=== PATIENT | female | born 1955 | race Caucasian/White ===

== ENCOUNTER → 2016-12-22 | Outpatient (CLI) | payer BC | LOC: FIMAGING 08:15 | PROVIDERS: ATTEND Internal Medicine Cardiovascular Disease | DX: Z03.89 Encounter for observation for other suspected diseases and conditions ruled out (principal) ==

== ENCOUNTER 2017-08-03 13:18 | Day surgery (SDC) | payer BC ==
[2017-08-03] MEDS ORDERED: LR 1,000 ML IV ONE (13:49)
[2017-08-03] MEDS ORDERED: LIDOCAINE 1% 2 ML INJ ID PRN (13:49)
[2017-08-03 14:38] VITALS: PULSE 74
[2017-08-03] MEDS ORDERED: ceFAZolin 2 GM/SWFI 2 GM/20 ML SYR IVP ONE (15:08)
--- NOTE | 2017-08-03 15:24 | PDHPUP ---
History & Physical Update H&P update statement: This history and physical update is based on an assessment of the patient which was completed after admission or registration (within 24 hours), but prior to the surgery/procedure. 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 Bonita relates feeling well, no changes since exam last week. My office is forwarding copy of preop visit with me. Today to update: Lungs Clear Heart NRR. There appears to be no contraindication to surgery. H&P changes: None.
[2017-08-03] MEDS ORDERED: BACITRACIN 50,000 UNITS/10 ML SYR IRR ONE ×2 (15:38→17:34)
[2017-08-03] MEDS ORDERED: LIDOCAINE 2% 5 ML SDV ONE (15:38)
[2017-08-03] MEDS ORDERED: ROPIVACAINE HCL 150 MG/30 ML INJ ONE (15:39)
[2017-08-03] MEDS ORDERED: DEXAMETHASONE 4 MG/ML VIAL ONE (15:40)
[2017-08-03] MEDS ORDERED: BUPIVACAINE 0.5% 30 ML SDV ONE ×2 (15:40→18:34)
[2017-08-03] MEDS ORDERED: MIDAZOLAM 2 MG/2 ML VIAL IVP ONE (15:53)
--- NOTE | 2017-08-03 15:55 | PDANEPAE ---
ANE Past Medical History - Cardiovascular History Hx Hypertension: Yes Hx Arrhythmias: No Hx Chest Pain: No Hx Coronary Artery / Peripheral Vascular Disease: Yes Hx CHF / Valvular Disease: No Hx Palpitations: No Cardiovascular History Comment: htn. cad. hyperlipidemia - Pulmonary History Hx COPD: No Hx Asthma/Reactive Airway Disease: No Hx Recent Upper Respiratory Infection: No Hx Oxygen in Use at Home: No Hx Sleep Apnea: No Sleep Apnea Screening Result - Last Documented: Negative - Neurologic History Hx Cerebrovascular Accident: No Hx Seizures: No Hx Dementia: No - Endocrine History Hx Diabetes: No Hypothyroid: Yes Hyperthyroid: No Obesity: no Endocrine History Comment: hypothyroidism - Renal History Hx Renal Disorders: No - Liver History Hx Hepatic Disorders: No - Neurological & Psychiatric Hx Hx Neurological and Psychiatric Disorders: No - Cancer History Hx Cancer: No - Congenital Disorder History Hx Congenital Disorders: No - GI History Hx Gastrointestinal Disorders: No - Other Health History Other Health History: wears glasses/ contacts. current toe fungus being treated by jonathan - Chronic Pain History Chronic Pain: Yes (bilateral feet and knees, right shoulder pain) - Surgical History Prior Surgeries: previous right foot surgery. . exploratory lap for fallopian tube adhesions ANE Review of Systems Review of Systems: - Exercise capacity METS (RN): 4 METS ANE Patient History - Allergies Allergies/Adverse Reactions: No Known Allergies Allergy (Verified 08/03/17 14:06) - Home Medications Home Medications: Aspirin 81mg (*) 07/26/17 [Last Taken 07/24/17] Atorvastatin Calcium 07/26/17 [Last Taken 08/03/17 08:00] Herbals/Supplements -Info Only 07/26/17 [Last Taken 07/24/17] IBUPROFEN 07/26/17 [Last Taken 07/24/17] LAMISIL 07/26/17 [Last Taken 07/27/17] LEVOTHYROXINE SODIUM 07/26/17 [Last Taken 08/03/17 08:00] Lisinopril 07/26/17 [Last Taken 08/03/17 08:00] - NPO status NPO Since - Liquids (Date): 08/03/17 NPO Since - Liquids (Time): 11:00 NPO Since - Solids (Date): 08/03/17 NPO Since - Solids (Time): 05:30 - Smoking Hx Smoking Status: Former smoker - Family Anes Hx Family Hx Anesthesia Complications: none ANE Labs/Vital Signs - Vital Signs Blood Pressure: 123/79 Heart Rate: 74 Respiratory Rate: 16 O2 Sat (%): 97 Height: 165.1 cm Weight: 80.739 kg ANE Physical Exam - Airway Neck exam: FROM Mallampati Score: Class 2 Mouth exam: normal dental/mouth exam - Pulmonary Pulmonary: no respiratory distress, no rales or rhonchi - Cardiovascular Cardiovascular: regular rate and rhythym, no murmur, rub, or gallop - ASA Status ASA Status: II ANE Anesthesia Plan Anesthesia Plan: GA w LMA, MAC
[2017-08-03] MEDS ORDERED: fentaNYL 100 MCG/2 ML INJ ONE (15:59)
[2017-08-03] MEDS ORDERED: PROPOFOL/EMULSION 500 MG/50 ML BOTTLE IV ONE ×2 (15:59→17:11)
[2017-08-03] MEDS ORDERED: MIDAZOLAM 2 MG/2 ML VIAL ONE (16:06)
[2017-08-03] MEDS ORDERED: LIDOCAINE 1% 300 MG/30 ML SDV ONE ×2 (16:25→18:34)
[2017-08-03] MEDS ORDERED: KETAMINE 200 MG/20 ML VIAL ONE (16:26)
[2017-08-03] MEDS ORDERED: PROPOFOL 200 MG/20 ML VIAL ONE (16:34)
[2017-08-03] MEDS ORDERED: VANCOMYCIN 1 GM VIAL ONE (17:33)
[2017-08-03] MEDS ORDERED: fentaNYL 100 MCG/2 ML INJ IVP PRN (18:05)
[2017-08-03] MEDS ORDERED: NALOXONE HCL 0.4 MG/ML INJ IVP PRN (18:05)
[2017-08-03] MEDS ORDERED: HYDROCODONE/APAP 5/325 TAB PO PRN (18:05)
[2017-08-03] MEDS ORDERED: ONDANSETRON 4 MG/2 ML VIAL IVP PRN (18:05)
[2017-08-03] MEDS ORDERED: LR 500 ML IV PRN (18:05)
[2017-08-03] MEDS ORDERED: POVIDONE-IODINE 30 GM OINTTUBE TP ONE (18:06)
--- NOTE | 2017-08-03 18:25 | POSTANESTH ---
Post Anesthetic Evaluation Cardiovascular Status: Normal, Stable Respiratory Status: Normal, Stable Level of Consciousness/Mental Status: Can Participate in Eval Pain Control: Adequate, Prn Tx Ordered Nausea/Vomiting Control: Adequate, Prn Tx Ordered Complications Possibly Related to Anesthesia: None Noted
--- NOTE | 2017-08-03 18:29 | POSTOPPROG ---
Post Op Note Date of Operation: 08/03/17 Surgeon: Susan Madrid Architectural Project Manager: none Anesthesiologist: yvonne Snider MD Anesthesia: Other (Specify) (MAC/light general) Pre-op Diagnosis: 1.complication biomedical engineering internship.fiximplant 1stMTPJ. 2. Mallet/HT 2nd Right foot Post-op Diagnosis: same Indication: Pain , loosening of implant Procedure: ARthroplasty,w removal of biopro implant. HT repair with screw fix.2ndtoeR Findings: loose implant Inf/Abcess present in the surg proc area at time of surgery?: No Depth: Deep Incisional (Fascial) EBL: Minimal Complications: Patient moved foot under drape at mid procedure ,however it was retrieved rather quickly and since prep was to knee and bottom drape intact, and with stockenette it is suspected that wound/foot remained sterile. Wounds were copiously irrigated with 1 gram vancomycin and bacitracin, and 2 litters of sterile saline. Specimen(s): none sent. implant was intact, no degeneration. no gross signs of infection.
[2017-08-03 19:12] VITALS: RESP 20; TEMP 97.3
[2017-08-03 19:36] VITALS: BP 136/96
[2017-08-03 20:10] VITALS: O2SAT 93
--- NOTE | 2017-08-04 05:26 | GOP ---
[f rep st] OPERATIVE REPORT DATE OF OPERATION: SURGEON: Susan Madrid DPM ANESTHESIA: MAC/light general. ANESTHESIOLOGIST: PREOPERATIVE DIAGNOSIS: 1. Complication internal fixation, BioPro implant, 1st metatarsophalangeal joint, right foot. 2. Mallet toe/hammertoe contracture, 2nd digit, right foot. POSTOPERATIVE DIAGNOSIS: 1. Complication internal fixation, BioPro implant, 1st metatarsophalangeal joint, right foot. 2. Mallet toe/hammertoe contracture, 2nd digit, right foot. PROCEDURE PERFORMED: 1. Arthroplasty with removal of BioPro implant, right foot. 2. Mallet toe repair involving fusion, distal interphalangeal joint with screw fixation and pin fixa tion, right foot. FINDINGS: 1. Degenerative changes, distal interphalangeal joint, 2nd digit, right foot. 2. BioPro implant loose and unstable within the joint. ESTIMATED BLOOD LOSS: Less than 5 cc. DESCRIPTION OF PROCEDURE: The patient brought into the operating room, placed on the operating table in the supine position. Intravenous sedation administered by the anesthesiologist, a light general. The lower extremity was prepped and draped in the usual sterile manner, after the limb was elevated , was exsanguinated with an Esmarch bandage, and the ankle tourniquet was inflated to 220 mmHg, and t he procedure was begun. Stockinette used utilized under the ankle cuff. Procedure #1: Arthroplasty with removal BioPro implant, 1st metatarsophalangeal joint. Attention wa s directed toward the dorsal aspect of the 1st metatarsophalangeal joint where a linear incision was created along previous incision line. Incision was carefully deepened with care of neurovascular str uctures and clamp and cauterize bleeders. Linear cut immediately below the tissue, which is subcutan eous tissue, which was noted to be very thin. Implant was noted. Implant was loose and toggling. S urrounding, there were adhesions around the joint, and soft tissue was carefully reflected off the im plant in the joint. It took considerable time to loosen the implant from the proximal phalanx. Util izing saw, some bone was removed dorsally to help assist in the process. Implant was then removed venegas ccessfully. The whole defect was then filled with Maria M bone graft. Wound was copiously irrigated bacitracin irrigation solution throughout the procedure. Attention directed toward the 2nd digit, where a linear incision was created. Incision carefully verna pened with care of neurovascular structures and clamp and cauterize bleeders. Transverse tenotomy pe rformed at the level of the distal interphalangeal joint. Tendon reflected, exposing distal interpha langeal joint. Utilizing sagittal saw, cartilage was resected off the head of the proximal phalanx a nd base of the middle phalanx in preparation for fusion. Wound was copiously irrigated with bacitrac in irrigation solution. Pin driven through the distal phalanx and retrograded through the middle phalanx. C-arm pictures carlos manuel ifying alignment and positioning, which appeared excellent. The positioning was at a slight angle, h owever, apposition and positioning of the toe was clinically in great alignment. Then, utilizing Ost eoMed 2.4, 16 mm screw placed from distal to proximal, distal interphalangeal joint was fixated with good apposition. C-arm pictures taken. K-wire was left in place, running through the head of the pr oximal phalanx, to add to some additional stability, but will be removed at a week or 2 postoperative ly. Again with loading of the forefoot, excellent alignment, despite radiographic picture showing sl ight angle. There was an incident where the patient moved her foot underneath the drape, however, I believe I cau ght her foot before she broke sterile technique, we had an under drape, as well as she had a stockine tte on. However, once retrieved, I did a 2 L irrigation with vancomycin and bacitracin to ensure the foot and the wound did not get contaminated. Capsular closure of the 1st metatarsophalangeal joint achieved with 2-0 and 3-0 Vicryl. Second digit closed with 3-0 Vicryl. Tourniquet released and a normal hyperemic response noted to all digits. S ubcutaneous closure with 4-0 Monocryl, and the skin was closed with 4-0 Prolene in a horizontal mattr ess and single interrupted suture manner. Dressings included Xeroform, 4 x 4's, fluffs, Jil, tape, and reinforced with an Nahum bandage. Patient tolerated the procedure and anesthesia well and left th e operating room with vital signs stable and vascular status intact to all digits. SURGEON: Susan Madrid DPM INDICATIONS FOR PROCEDURE: Pain in the 1st metatarsophalangeal joint, despite conservative treatment efforts, shoe education, strapping, and orthotics. X-rays demonstrating what appears to be loosenin g of the implant. The patient was given the option of just removal of the implant and/or fusion of t he 1st metatarsophalangeal joint. However, with fusion, she needs to anticipate the possibility of b one graft to maintain length, and therefore, 6 weeks nonweightbearing. Patient, at this time, elects to proceed with removal of implant, see how she does, and will consider fusion at a later date if ne cessary. Second digit pain, contracture of the distal interphalangeal joint, likely compensating fro m pain from the 1st metatarsophalangeal joint. The patient, at this time, elects to proceed with megan alyssa on the 2nd toe. PATHOLOGY: No specimen sent. In postoperative recovery, patient was doing well, she was having some pain in the 2nd toe, and there fore, an additional 6 cc of 1-1 mix of 1% lidocaine plain combined with 0.5% Marcaine plain was injec antonio to make her more comfortable until full anesthesia was obtained. The patient is to follow up in my office in 6 days for wound check. To call me sooner if there are any problems or complications. PROGNOSIS: Good. /[id number]/MODL
== END 2017-08-03 19:50 | disposition home or self-care (01) ==
LOC: FSGY 13:18
PROVIDERS: ATTEND Podiatrist
PROC: 0SPM04Z Removal of Internal Fixation Device from Right Metatarsal-Phalangeal Joint, Open Approach (ICD-10-PCS; principal; 2017-08-03 15:00)
PROC: 0SGP04Z Fusion of Right Toe Phalangeal Joint with Internal Fixation Device, Open Approach (ICD-10-PCS; principal; 2017-08-03 15:00)
DX: T84.038A Mechanical loosening of other internal prosthetic joint, initial encounter (principal); T84.84XA Pain due to internal orthopedic prosthetic devices, implants and grafts, initial encounter; M20.41 Other hammer toe(s) (acquired), right foot; M79.671 Pain in right foot; M20.21 Hallux rigidus, right foot; I10 Essential (primary) hypertension; E03.9 Hypothyroidism, unspecified; E78.5 Hyperlipidemia, unspecified; I25.10 Atherosclerotic heart disease of native coronary artery without angina pectoris; F41.9 Anxiety disorder, unspecified
CPT/HCPCS: 20680; 28285; 73630; C1769; C1713; C1762; J0690; J1100; J2250; J2704; J2795; J3010; J3370